=== PATIENT | male | born 1960 | race Caucasian/White ===

== ENCOUNTER 2016-06-10 13:57 | Emergency (ER) | payer OTHER ==
[~2016-06-10] VITALS: Ht 185.4 cm; Wt 130.0 kg
[~2016-06-10 13:57] MED LIST: ASPIR-TRIN325 M1 PO; CLONAZEPAM0.5 MG PO; DEPAKOTE ER500 MG PO; DEPAKOTE500 MG PO; DESYREL100 MG PO; DIVALPROEX SOD250 M1 PO; DIVALPROEX SOD500 MG PO; DOES NOT KNOW MEDS; IMODIUM A-D2 MG PO; KLONOPIN1 MG PO; LEXAPRO10 MG PO; PANTOPRAZOLE SO40 MG PO; PERPHENAZINE4 MG PO; PREDNISONE20 MG PO; PROLIXIN2.5 MG/ML IM; Prilosec PO; RANITIDINE HCL150 M1 PO; RISPERDAL1 MG PO; RISPERDAL2 MG PO; RISPERDAL25 MG/2 ML IM; RISPERDAL50 MG/2 ML IM; SEROQUEL50 MG; SEROQUEL50 MG PO; SIMVASTATIN20 MG PO; TRAZODONE HCL100 MG PO; TRAZODONE HCL50 MG PO; VENTOLIN HFA18 GM IH; ZOLOFT; ZOLOFT50 MG PO; ZYPREXA7.5 MG PO; Zoloft PO
[2016-06-10 15:42] VITALS: BP 150/89
== END 2016-06-10 15:46 | disposition home or self-care (01) ==
LOC: EME → EDBD 13:57 → EME 13:57
DX: F25.0 Schizoaffective disorder, bipolar type (principal); I48.91 Unspecified atrial fibrillation; J45.909 Unspecified asthma, uncomplicated; K21.9 Gastro-esophageal reflux disease without esophagitis
CPT/HCPCS: 90837; 93005; 99281; 99283